=== PATIENT | female | born 1970 | race Caucasian/White ===

== ENCOUNTER 2017-09-22 12:20 | Emergency (ER) | payer OTHER ==
[~2017-09-22] VITALS: Ht 152.4 cm; Wt 48.5 kg
[~2017-09-22 12:20] MED LIST: ADDERALL 20 MG20 MG PO; ADVIL200 M1 PO; ALLEGRA180 MG PO; ALPRAZOLAM1 M1 PO; AMPHETAMINE SAL10 MG PO; AMPHETAMINE SAL20 M1 PO; ATIVAN0.5 MG; BUSPIRONE PO; CELEXA40 MG PO; EXCEDRIN MIGRA1 EAC1 PO; FLONASE 0.05%50 MCG NS; HYDROCODON-ACE1 EAC5 PO; HYDROCODON-ACE1 EAC7 PO; HYDROCODONE-AP1 EA10 PO; IMITREX 50 MG T50 MG PO; KLONOPIN1 MG PO; PERCOCET 5-3251 EACH PO; PRISTIQ100 MG PO; PRISTIQ50 MG; TYLENOL325 MG PO; WELLBUTRIN SR150 MG PO; ZANAFLEX4 MG PO; ZOFRAN ODT4 MG SUBLING
[2017-09-22] MEDS ORDERED: LIDOCAINE VISC100 ML SWISH&SPIT (12:40)
[2017-09-22] MEDS ORDERED: AUGMENTIN 875-1 EACH PO (12:40)
[2017-09-22] MEDS ORDERED: ACETAMINOPHEN-1 EAC1 PO (12:40)
[2017-09-22] MEDS ORDERED: TORADOL 10 MG T10 MG PO (12:40)
[2017-09-22 12:50] VITALS: BP 135/58
== END 2017-09-22 12:51 | disposition home or self-care (01) ==
LOC: M.ERS 12:20
DX: K08.89 Other specified disorders of teeth and supporting structures (principal); F17.210 Nicotine dependence, cigarettes, uncomplicated; Z90.49 Acquired absence of other specified parts of digestive tract; Z91.040 Latex allergy status; Z91.09 Other allergy status, other than to drugs and biological substances

== ENCOUNTER 2018-04-16 23:11 | Inpatient (IN) | payer OTHER ==
[~2018-04-16] VITALS: Ht 152.4 cm; Wt 49.9 kg
[~2018-04-16 23:11] MED LIST changes: +ACETAMINOPHEN-1 EAC1 PO; +AUGMENTIN 875-1 EACH PO; +LIDOCAINE VISC100 ML SWISH&SPIT; +TORADOL 10 MG T10 MG PO
[2018-04-16 23:21] VITALS: BP 142/72
[2018-04-16] MEDS ORDERED: TOPAMAX 100 MG100 MG PO (23:27)
[2018-04-16 23:40] LABS: HEMATOCRIT 33.7 % (37.0-47.0); HEMOGLOBIN 10.1 gm/dL (12.0-15.0); MCH 21.9 pg (26.0-34.0); MCHC 29.8 g/dL (28.0-37.0); MCV 73.7 fL (80.0-100.0); MPV 7.6 fl. (7.2-11.1); NUCLEATED RBCS 0 /100WBC; PLATELET COUNT* 450 thou/uL (150-400); RBC 4.58 mil/uL (4.20-5.00); WBC 13.3 thou/uL (4.0-11.0)
[2018-04-16 23:46] LABS: CALCIUM 8.6 mg/dL (8.5-10.1); CREATININE 0.7 mg/dL (0.6-1.3); POTASSIUM 3.6 mmol/L (3.5-5.1)
[2018-04-16 23:51] LABS: ALBUMIN 3.5 g/dL (3.4-5.0); TOTAL BILIRUBIN 0.3 mg/dL (<0.1-1.0); TOTAL PROTEIN 7.9 g/dL (6.4-8.2)
[2018-04-17 00:04] LABS: ABSOLUTE LYMPHOCYTES 0.7 thou/uL (0.8-5.3); ABSOLUTE MONOCYTES 0.1 thou/uL (0.0-1.2); ABSOLUTE NEUTROPHILS 12.5 thou/uL (1.6-8.1); PLATELET ESTIMATE INCREASED
[2018-04-17 00:05] LABS: ANISOCYTOSIS 1+; CLUMPED PLTS FEW; HYPOCHROMASIA 2+; MACROCYTES Occasional; MICROCYTES 1+; OVALOCYTES Occasional; TOXIC GRANULATION 1+
[2018-04-17 01:26] LABS: URINE BILIRUBIN NEGATIVE (Negative); URINE BLOOD TRACE (Negative); URINE CLARITY CLEAR; URINE COLOR YELLOW; URINE GLUCOSE-RANDOM NEGATIVE (Negative); URINE KETONES NEGATIVE (Negative); URINE LEUKOCYTES-REFLEX NEGATIVE (Negative); URINE PROTEIN NEGATIVE (Negative); URINE SPECIFIC GRAVITY <= 1.005 (1.005-1.030); URINE UROBILINOGEN 0.2 E.U./dl (0.2-1.0)
[2018-04-17 01:27] LABS: URINE NITRITE-REFLEX POSITIVE (Negative)
[2018-04-17 01:34] LABS: AMP/METHAMP POSITIVE (Negative); BARBITURATES Negative (Negative); BENZODIAZEPINES POSITIVE (Negative); COCAINE Negative (Negative); METHADONE Negative (Negative); OPIATES POSITIVE (Negative); PCP Negative (Negative); THC Negative (Negative)
[2018-04-17 01:37] LABS: BACTERIA-REFLEX >30 Many /HPF (None Seen); CASTS None Seen /LPF (None Seen); CRYSTALS None Seen /LPF (None Seen); MUCUS 4-6 Moderate strn/LPF (None Seen); SQUAMOUS >10 Many /LPF (0-3); TRANSITIONAL EPITHEL CELL 0-3 Few /LPF (None Seen); URINE RBC 0-2 Rare /HPF (0-2); URINE WBC-REFLEX 0-5 Rare /HPF (0-5)
--- NOTE | 2018-04-17 01:50 | NUR ---
SURGERY RESIDENT AT BEDSIDE; PT CLOTHING REMOVED, STARTED PRE-OP CHECK LIST SPOUSE AT BEDSIDE; CALL LIGHT WITHIN REACH WILL CONTINUE TO MONITOR
[2018-04-17 02:21] VITALS: BP 136/62
[2018-04-17 05:10] VITALS: BP 131/63
--- NOTE | 2018-04-17 08:12 | NUR ---
Admission to floor at 0500. She had an exploratory laparotomy and has a midline incision with a provena woundvac dressing. She has NG to LIS in L nares and hasn't really had any output. Rivera to DD and not very much output. Vitals are stable. New IV started at 0730 in left forearm, fluids are Lactated Ringers. Patient is more aware now and wweant home to sleep.
[2018-04-17 08:20] VITALS: BP 143/69
[2018-04-17 08:30] LABS: HEMOGLOBIN 9.6 gm/dL (12.0-15.0); MCH 22.1 pg (26.0-34.0); MCHC 29.8 g/dL (28.0-37.0); MCV 74.2 fL (80.0-100.0); MPV 7.9 fl. (7.2-11.1); RBC 4.32 mil/uL (4.20-5.00); RDW-CV 17.9 % (10.5-14.5); WBC 17.3 thou/uL (4.0-11.0)
[2018-04-17 08:37] LABS: ALBUMIN 2.9 g/dL (3.4-5.0); CALCIUM 7.6 mg/dL (8.5-10.1); CREATININE 0.6 mg/dL (0.6-1.3); MAGNESIUM 1.7 mg/dL (1.8-2.4); PHOSPHORUS* 2.2 mg/dL (2.5-4.9); POTASSIUM 3.9 mmol/L (3.5-5.1); TOTAL BILIRUBIN 0.3 mg/dL (<0.1-1.0); TOTAL PROTEIN 6.6 g/dL (6.4-8.2)
[2018-04-17 15:28] VITALS: BP 150/91
--- NOTE | 2018-04-17 16:42 | EKG ---
[place] [address] ELECTROCARDIOGRAM REPORT Name: SHAD FRAIRE Adan Room: [address] ADM IN M.R.#: [id number] Admission: 04/17/18 Attend Phys: Ratna Madsen DO Discharge: Date of : 68 Report #: [id number] THIS REPORT FOR: //name// [facility] ED Test Date: 2018-04-17 Test Time: 01:23:25 Pat Name: SHAD CHAPARRO Department: Room: [address] Gender: F Software Installer: JAMISON : 1970 Requested By: Rebekah Pan Order Number: [id number] ENCARNACION: Homero Jean Measurements Intervals [place] Rate: 84 P: 73 NE: 123 QRS: 44 QRSD: 87 T: 31 QT: 378 QTc: 447 Interpretive Statements Sinus rhythm Low voltage, precordial leads Compared to ECG 03/07/2016 23:40:02 Low QRS voltage now present Electronically Signed On 04-17-2018 16:42:12 CDT by Homero Jean [email or web address] <ELECTRONICALLY SIGNED> By: Homero Jean MD, [facility] 04/17/18 1642 0123 0123 Homero Jean MD, [facility] /EPI
[2018-04-17 20:00] VITALS: BP 115/58
--- NOTE | 2018-04-17 20:20 | NUR ---
PT ALERT AND ORIENTED X4. IVF INFUSING LFA. PT GIVEN IV ZOFRAN AND IV MORPHINE FOR PAIN CONTROL. PROVENA WOUND VAC TO ABDOMINAL INCISION. NO DRAINAGE PRESENT. HOU CATHETER IN PLACE. NG TUBE IN PLACE. 2ND IV LINE STARTED IN RFA FOR INFUSION OF ELECTROLYE REPLACEMENT. VS STABLE. HOURLY ROUNDS MAINTAINED. WILL USE CALL LIGHT FOR ASSISTANCE. CALL LIGHT WITHIN REACH.
[2018-04-18] VITALS: BP 127/47
[2018-04-18 04:00] VITALS: BP 154/63
[2018-04-18 04:54] LABS: ABSOLUTE BASOPHILS 0.1 thou/uL (0.0-0.2); ABSOLUTE EOSINOPHILS 0.1 thou/uL (0.0-0.7); ABSOLUTE LYMPHOCYTES 2.5 thou/uL (0.8-5.3); ABSOLUTE NEUTROPHILS 10.4 thou/uL (1.6-8.1); BASOPHILS 0.9 %; EOSINOPHILS 0.6 %; HEMATOCRIT 27.7 % (37.0-47.0); HEMOGLOBIN 8.1 gm/dL (12.0-15.0); LYMPHOCYTES 17.9 %; MCH 21.8 pg (26.0-34.0); MCHC 29.3 g/dL (28.0-37.0); MCV 74.3 fL (80.0-100.0); MONOCYTES 7.1 %; MPV 8.1 fl. (7.2-11.1); NUCLEATED RBCS 0 /100WBC; PLATELET COUNT* 319 thou/uL (150-400); POLYS 73.5 %; RBC 3.73 mil/uL (4.20-5.00); RDW-CV 18.1 % (10.5-14.5); WBC 14.1 thou/uL (4.0-11.0)
[2018-04-18 05:22] LABS: CALCIUM 7.5 mg/dL (8.5-10.1); CREATININE 0.7 mg/dL (0.6-1.3); PHOSPHORUS* 3.2 mg/dL (2.5-4.9)
--- NOTE | 2018-04-18 06:00 | NUR ---
Alert and oriented x 4. She is drowsy and is still having abdominal pain 8-10 out of 10. She has hypoactive bowel sounds and she states she feels air rumbling around but has not passed gas. She has had morphine x 2 for pain and scheduled toradol and she also has had IV nausea meds prior to morphine because she states it makes her nauseated. NG to LIS hasn't had any output that is measurable. Midline incision has provena wound vac that is dry and intact, without any drainage observed. Vitals are stable. She has slept well.
[2018-04-18 08:15] VITALS: BP 138/50
--- NOTE | 2018-04-18 14:04 | NUR ---
PT.RESTING IN BED. STATED SHE IS FEELING BETTER BUT STILL REALLY SORE. SHE LIVES WITH HER S.O. AND SON. SHE IS NORMALLY INDEPENDENT AND ACTIVE. NO USE OF DME. SHE SHOULD NOT HAVE ANY DISCHARGE NEEDS. GOAL IS TO GO HOME IN SEVERAL DAYS.
--- NOTE | 2018-04-18 15:09 | NUR ---
ALERT AND ORIENTED X4. UP WITH ASSIST X1 WITH GAIT. PAIN BEING MANAGED WITH IV PAIN MEDICATION. DENIES NAUSEA. NG TUBE DC'D THIS AM. HOU DC'D THIS AFTERNOON AFTER PATIENT GOT UP TO CHAIR. PREVENA WOUND VAC IN PLACE ON MIDLINE INCISION ON ABDOMEN. VSS ON ROOM AIR. HOURLY ROUNDS HAVE BEEN MAINTAINED THROUGHOUT SHIFT. CALL LIGHT IS WITHIN REACH. REPORT GIVEN TO AZEEM JONES. NURSING WILL CONTINUE TO MONITOR.
[2018-04-18 17:48] VITALS: BP 100/61
--- NOTE | 2018-04-18 18:57 | NUR ---
RECIEVED REPORT FOR PATIENT FROM ÁNGELA AT 1500. AGREE WITH PREVIOUS NURSE ASSESSMENT. PAIN WELL CONTROLLED WITH PAIN MEDS. VOIDED WITHOUT ISSUE. COMPLETED HOURLY ROUNDING. CALL LIGHT WITHIN REACH. WILL CONTINUE TO MONITOR.
[2018-04-18 21:30] VITALS: BP 90/33
[2018-04-19] VITALS: BP 82/41
[2018-04-19 04:20] VITALS: BP 87/37
[2018-04-19 04:25] LABS: ABSOLUTE BASOPHILS 0.1 thou/uL (0.0-0.2); ABSOLUTE EOSINOPHILS 0.2 thou/uL (0.0-0.7); ABSOLUTE MONOCYTES 0.5 thou/uL (0.0-1.2); ABSOLUTE NEUTROPHILS 4.1 thou/uL (1.6-8.1); BASOPHILS 1.1 %; EOSINOPHILS 3.4 %; HEMOGLOBIN 7.2 gm/dL (12.0-15.0); LYMPHOCYTES 28.4 %; MCH 22.5 pg (26.0-34.0); MCHC 30.1 g/dL (28.0-37.0); MCV 74.8 fL (80.0-100.0); MONOCYTES 7.8 %; NUCLEATED RBCS 0 /100WBC; POLYS 59.3 %; RDW-CV 18.3 % (10.5-14.5)
[2018-04-19 04:36] LABS: PLATELET COUNT* 212 thou/uL (150-400)
[2018-04-19 04:41] LABS: CALCIUM 7.4 mg/dL (8.5-10.1); CREATININE 0.8 mg/dL (0.6-1.3); MAGNESIUM 1.9 mg/dL (1.8-2.4); PHOSPHORUS* 2.6 mg/dL (2.5-4.9); POTASSIUM 3.8 mmol/L (3.5-5.1)
--- NOTE | 2018-04-19 06:50 | NUR ---
PATIENT SLEPT MOST OF THE NIGHT. IV FLUIDS CONTINUE TO INFUSE AT 80 ML/HR. MIDLINE INCISION WITH PROVENA REMAINS INTACT. BP HAS RAN LOW THIS SHIFT FLUID BOLUS WAS GIVEN ORDERED. STILL RUNNING LOW CHARTED BUT IS ASYPTOMATIC STILL. WILL CONTINUE TO MONITOR.
[2018-04-19 08:30] VITALS: BP 87/37
[2018-04-19 11:51] LABS: HEMATOCRIT 24.4 % (37.0-47.0); HEMOGLOBIN 7.2 gm/dL (12.0-15.0)
[2018-04-19 16:01] VITALS: BP 83/31
--- NOTE | 2018-04-19 17:58 | NUR ---
PATIENT REMAINED ALERT AND ORIENTED X'S 4. VITAL SIGNS STABLE BUT BP IS RUNNING SOFT. IV CLEAN, FLUIDS INFUSING. PAIN WELL CONTROLLED WITH PAIN MEDS. VOIDED WITHOUT ISSUE. TOLERATED DIET, NO NAUSEA AND VOMITING. PATIENT DID WELL FOR PT. INCISION ON ABDOMEN CLEAN, DRY, INTACT. COMPLETED HOURLY ROUNDING, CALL LIGHT WITHIN REACH. WILL CONTINUE TO MONITOR.
[2018-04-19 20:45] VITALS: BP 92/39
[2018-04-20 00:30] VITALS: BP 89/30
[2018-04-20 04:20] VITALS: BP 83/32
[2018-04-20 04:51] LABS: ABSOLUTE EOSINOPHILS 0.2 thou/uL (0.0-0.7); ABSOLUTE LYMPHOCYTES 1.4 thou/uL (0.8-5.3); ABSOLUTE MONOCYTES 0.5 thou/uL (0.0-1.2); BASOPHILS 0.8 %; EOSINOPHILS 3.9 %; HEMATOCRIT 23.6 % (37.0-47.0); LYMPHOCYTES 22.2 %; MCH 22.4 pg (26.0-34.0); MCHC 29.7 g/dL (28.0-37.0); MCV 75.2 fL (80.0-100.0); MONOCYTES 7.9 %; MPV 8.4 fl. (7.2-11.1); NUCLEATED RBCS 0 /100WBC; PLATELET COUNT* 216 thou/uL (150-400); POLYS 65.2 %; RBC 3.14 mil/uL (4.20-5.00); RDW-CV 18.6 % (10.5-14.5); WBC 6.1 thou/uL (4.0-11.0)
[2018-04-20 05:00] LABS: CALCIUM 7.3 mg/dL (8.5-10.1); CREATININE 0.8 mg/dL (0.6-1.3); MAGNESIUM 1.9 mg/dL (1.8-2.4); PHOSPHORUS* 2.5 mg/dL (2.5-4.9); POTASSIUM 3.4 mmol/L (3.5-5.1)
--- NOTE | 2018-04-20 07:03 | NUR ---
PATIENT SLEPT MOST OF THE NIGHT. IV FLUIDS CONTINUE TO INFUSE AT 80 ML/HR. PATIENT WAS GIVEN PAIN MEDICINE THREE TIMES THIS SHIFT. BP REMAINS LOW. MIDLINE INCISION REMAINS INTACT WITH PROVENA IN PLACE. WILL CONTINUE TO MONITOR.
[2018-04-20 07:35] LABS: ANISOCYTOSIS 1+; HYPOCHROMASIA 3+; MICROCYTES 1+; OVALOCYTES 1+; PLATELET ESTIMATE ADEQUATE; POIKILOCYTOSIS 1+; POLYCHROMASIA 1+
[2018-04-20 09:49] LABS: HEMATOCRIT 24.8 % (37.0-47.0); HEMOGLOBIN 7.3 gm/dL (12.0-15.0)
[2018-04-20 12:04] VITALS: BP 84/41; BP 84/44; BP 86/37; BP 87/37
[2018-04-20 16:02] VITALS: BP 83/36
[2018-04-20 19:40] VITALS: BP 85/42
--- NOTE | 2018-04-20 20:15 | NUR ---
PATIENT REMAINED ALERT AND ORIENTED X'4. VITAL SIGNS AND SPO2 STABLE. IV CLEAN, FLUIDS INFUSING. 10/325 HYDROCODONE SEEMS TO WORK VERY WELL FOR PAIN. TOLERATED DIET, NO NAUSEA AND VOMITING. PATIENT WALKED HALLS AND DID WELL. SHE IS GETTING OUT OF BED MUCH EASIER AND WITHOUT HELP AT THIS POINT. SHE RECIEVED ONE UNIT OF BLOOD. THE COLOR IN HER FACE CAME BACK AND SHE FELT A LITTLE MORE ENERGY BUT HER BLOOD PRESSURE REMAINED 80'S/30'S. VOIDED WITHOUT ISSUE, STARTED ON BOWEL MEDS BUT HAS NOT HAD A BM YET. COMPLETED HOURLY ROUNDING. CALL LIGHT WITHIN REACH. WILL CONTINUE TO MONITOR.
[2018-04-21 00:32] VITALS: BP 87/36
[2018-04-21 04:00] VITALS: BP 107/55
[2018-04-21 04:26] LABS: HEMATOCRIT 27.6 % (37.0-47.0); HEMOGLOBIN 8.4 gm/dL (12.0-15.0); MCH 23.6 pg (26.0-34.0); MCHC 30.5 g/dL (28.0-37.0); MCV 77.4 fL (80.0-100.0); MPV 8.5 fl. (7.2-11.1); RBC 3.57 mil/uL (4.20-5.00); WBC 5.8 thou/uL (4.0-11.0)
[2018-04-21 04:40] LABS: CALCIUM 8.3 mg/dL (8.5-10.1); CREATININE 0.8 mg/dL (0.6-1.3); POTASSIUM 3.8 mmol/L (3.5-5.1)
--- NOTE | 2018-04-21 05:30 | NUR ---
PATIENT REMAINS ALERT AND ORIENTED X4 THROUGHOUT SHIFT. VITAL SIGNS STABLE ON ROOM AIR. IV PATENT IN THE RIGHT AC INFUSING PER ORDERS. PAIN MANAGED WITH PO MEDICATION PER ORDERS. TRANSFERS WITH ONE ASSIST TO THE RESTOOM. MIDLINE DRESSING CLEAN, DRY AND INTACT WITH WOUND VAC IN PLACE. REPOSITIONING SELF IN BED. HOURLY ROUNDING COMPLETE. CALL LIGHT WITHIN REACH. NURSING WILL CONTINUE TO MONITOR.
[2018-04-21 08:20] VITALS: BP 87/42
[2018-04-21 12:24] VITALS: BP 87/42
--- NOTE | 2018-04-21 13:48 | NUR ---
PATIENT BP'S NOTED TO BE SOFT THIS SHIFT, DR. HELM WAS NOTIFIED AND OK TO DISCHARGE HOME. ASYMPTOMATIC. IVF AND SCHED ABX INFUSED ORDERED, IV'S DC'D THIS AFTERNOON FOR DISCHARGE. PROVENA REMAINS IN PLACE TO MIDLINE, MIDLINE NOTED TO BE DRY AND INTACT. PASSING FLATUS. PATIENT UP AND AMBULATED IN [place] WITH THIS NURSE, NO DIFFICULTY NOTED. PRN VICODIN GIVEN FOR PAIN, PATIENT RATING PAIN 8/10 PRIOR AND THEN AFTER GIVEN 7/10, PATIENT STATED SHE STILL WANTED TO DISCHARGE AND PAIN WAS TOLERABLE. VERBALIZED UNDERSTANDING OF PAPERWORK, NO SCRIPTS NOTED PATIENT HAS PAIN MEDICATION AT HOME. PATIENT TAKEN OUT WITH STAFF VIA WHEELCHAIR WITH ALL BELONGINGS.
--- NOTE | 2018-04-21 17:08 | PATH ---
[address] [address] PATHOLOGY RPT PROCEDURE Name: SHAD FRAIRE Room: [address] IN [facility]#: [id number] Admission: 04/17/18 Date of : 68 Discharge: 04/21/18 Report #: [id number] Path Case #: [id number] Note [facility] Accession Number: [id number] TESTS RESULT FLAG UNITS REF RANGE LAB Clinician Provided Cytology Information No. of containers..01 Other (Miscellaneous) Source: INRTA ABDOMINAL FLUI DIAGNOSIS: INRTA ABDOMINAL FLUI NEGATIVE FOR MALIGNANT CELLS. MESOTHELIAL CELLS AND FEW INFLAMMATORY CELLS IN BLOODY BACKGROUND. THIS INTERPRETATION INCLUDES EVALUATION OF A CELL BLOCK. Signed out by: 02 Ej Victor MD, Pathologist NPI- [id number] Performed by: 01 Fransico Brewer, Heel Wheeler ([facility]) Gross description: 01 60ML, WHITE/RED, CLOUDY /LCS FLAG LEGEND: L-Low Normal,H-High Normal,LL-Alert Low,HH-Alert High <-Panic Low,>-Panic High,A-Abnormal,AA-Critical Abnormal Performed at: [address] [place] [address] Peewee Lebron MD, [address] [place] [address] [address] [facility], [place] [address] Ej Victor MD, Specimen Comment: A courtesy copy of this report has been sent to Specimen Comment: [phone]. Specimen Comment: Report sent to Performed at: [address], [place], [place] [id number] MD Peewee Lebron MD Phone: [phone]
--- NOTE | 2018-04-24 07:43 | OP ---
[address] [address] OPERATIVE REPORT Name: SHAD FRAIRE Room: [address] IN M.R.#: [id number] Admission: 04/17/18 Attend Phys: Ratna Madsen DO Discharge: 04/21/18 Date of : 68 Report #: [id number] THIS REPORT FOR: //name// CC: Ratna Kelley DATE OF SERVICE: 04/17/2018 PREOPERATIVE DIAGNOSIS: Small-bowel obstruction due to internal hernia. POSTOPERATIVE DIAGNOSES: Small-bowel obstruction due to internal hernia, with the addition of adhesions. FINDINGS: The patient was status post gastric bypass with an antecolic limb of the jejunum going to the stomach remnant. There was a mesenteric defect just next to the SMA through which the entire small bowel had volvulized. There were a few dense adhesions from the omentum to the anterior abdominal wall. There was at least a liter of thick milky fluid throughout the abdomen. ANESTHESIA: General endotracheal and local. ESTIMATED BLOOD LOSS: 10 DRAINS: NG tube and Rivera catheter. SPECIMENS: Fluid for culture and cytology. COMPLICATIONS: None. CONDITION: Stable. DISPOSITION: PACU to the floor. HISTORY OF PRESENT ILLNESS: The patient is a 47-year-old female who presented to the ER with a complaint of acute onset left upper quadrant abdominal pain at approximately 6:00 p.m. this evening. This was associated with nausea without vomiting. She has had no fevers or chills. She has otherwise been in her standard state of health. She does have a history of a gastric bypass back in 2003. Workup was done in the ER including a CT scan, which was significant for what appeared to be an internal hernia with compromise of the small bowel. There was possible obstruction of the SMA and the SMV due to the internal hernia. The patient was immediately seen and was consented for an exploratory laparotomy, possible bowel resection, possible ostomy. We also discussed the possibility of needing to leave the abdomen open to return for a second look. Risks of surgery were discussed to include bleeding, infection, pain, scar formation, injury to bowel, hernia at the incision sites, [place] [address] OPERATIVE REPORT Name: SHAD FRAIRE Room: [address] IN .R.#: [id number] Admission: 04/17/18 Attend Phys: Ratna Madsen DO Discharge: 04/21/18 Date of : 68 Report #: [id number] abdomen and need for an ostomy, need for bowel resection and risks of general anesthesia. The patient understood these risks and elected to proceed. DESCRIPTION OF PROCEDURE: The patient was brought to the operating room. She was laid supine on the operating room table. SCDs were placed to bilateral lower extremities. The patient had already received Zosyn in the perioperative period. General endotracheal anesthesia was induced by Anesthesia without difficulty. Rivera catheter was placed utilizing sterile technique. Abdomen was prepped and draped in standard sterile fashion. Timeout was performed to verify patient and procedure. A 10 mL of 0.5% Marcaine were injected in the supraumbilical area. Incision was made with a 10 blade. Cautery was used for hemostasis. Cautery was then used to dissect down through subcutaneous tissue until fascia was identified. Fascia was nicked using cautery and was then elevated between 2 Debra clamps. Fascia was then incised superiorly and inferiorly. Peritoneum was then also gently nicked using a [place] clamp. Finger was introduced into the abdomen and the peritoneum was elevated. It was then incised superiorly and inferiorly. We immediately encountered a large amount of thick milky fluid throughout the entirety of the abdomen. This was suctioned away. We obtained approximately 1 liter of this fluid. Cultures were taken. The fluid was also gathered for cytology to be sent to the Pathology Department. There were some adhesions between the anterior abdominal wall and the omentum from her previous surgeries. These were taken down using a combination of blunt and cautery dissection. Omentum was then flipped superiorly. Small bowel was then eviscerated. Upon our initial entry, the entirety of the small bowel was somewhat dusky. We immediately identified the area of the internal hernia, which was from her previous gastric bypass surgery. This was through the mesentery of the small bowel, right next to the SMA and the SMV. The entirety of the small bowel was rotated. I was then able to reduce the hernia through the defect. Small bowel immediately pinkened up and began to peristalse. Gastric pouch was then identified. Anesthesia then passed an NG tube with me guiding them without difficulty. This was then secured into place. The entirety of the bowel was then run from the GJ to the JJ and then from the JJ to the terminal ileum. No further issues were identified. There were several areas of some bruising in the mesentery, but the bowel was otherwise uncompromised and again had immediately pinkened up once we reduced the hernia. The colon was then either completely visualized or palpated. There were no further issues identified besides some constipation in the colon. Abdomen was then copiously irrigated and suctioned until clear. The small bowel was allowed to fall into its anatomical position. The rent in the mesentery was then closely inspected. It was quite large. The rent was then closed using multiple interrupted stitches of 3-0 silk in a aelial-md-krazn fashion with excellent approximation of the rent. The rent was right next to the SMA, so care was taken to avoid injuring the underlying vascular structures. Upon the completion of this, I was unable to even fit a finger through the rent. Bowel was then returned into the abdomen. The omentum [place] [address] OPERATIVE REPORT Name: SHAD FRAIRE Room: [address] IN M.R.#: [id number] Admission: 04/17/18 Attend Phys: Ratna Madsen DO Discharge: 04/21/18 Date of : 68 Report #: [id number] bowel. Kochers were placed on the fascia of our incision. Our fascia was then closed in a running fashion with two #1 PDS with excellent approximation of the fascia. Subcutaneous tissues were irrigated. Subcutaneous tissues were then closed in a layered fashion using deep and superficial stitches of 3-0 Vicryl in inverted interrupted fashion. Skin wound was closed with running 4-0 Monocryl. A total of 30 mL of 0.5% Marcaine were used to anesthetize the wound. Wound was then cleansed and covered with Mastisol and a small Prevena VAC. The patient was then allowed to awake from anesthesia, was extubated and transported to the recovery room with no further difficulties. Counts were correct x 2 at the conclusion of the case. <ELECTRONICALLY SIGNED> By: Ratna Madsen DO 04/24/18 0743 0434 [id number] Madsen DO /nt
--- NOTE | 2018-04-24 13:22 | CON ---
[address] [address] CONSULTATION Name: SHAD FRAIRE Room: [address] IN M.R.#: [id number] Admission: 04/17/18 Attend Phys: Ratna Madsen DO Discharge: 04/21/18 Date of : 68 Report #: [id number] THIS REPORT FOR: //name// CC: Ratna Kelley DATE OF SERVICE: 04/17/2018 HISTORY OF PRESENT ILLNESS: The patient is a pleasant 47-year-old female with past medical history significant for gastric bypass 14 years back for weight loss, who presented to the hospital 2 days back with worsening episodes of cramping abdominal pain. The patient was at that time diagnosed with internal herniation and small-bowel obstruction with possible vascular compromise. The patient was taken for emergent surgery and the internal herniation was resolved. GI service has been consulted for evaluation of iron deficiency anemia. The patient reports that she has had iron deficiency anemia for a long time. The patient was supposed to have an EGD and colonoscopy performed by our group on 05/02 for the same. The patient denies any hematochezia, melena, hematemesis or weight loss. The patient has had multiple episodes of abdominal pain, which is cramping in nature, but usually resolves within a few minutes to hours since her gastric bypass surgery. The patient reports she had an ulcer diagnosed 5 years back, but never had a colonoscopy before. The patient reports that at this time she is able to pass gas, but has not been able to pass any bowel movements. PAST MEDICAL HISTORY: As mentioned above, the patient had obesity in the past. PAST SURGICAL HISTORY: The patient had cholecystectomy in 1995, gastric bypass in 2013. She had multiple back surgeries and an EGD. FAMILY HISTORY: The patient denies significant family history of colorectal cancer. SOCIAL HISTORY: The patient denies smoking, alcohol use or recreational drug use. REVIEW OF SYSTEMS: Comprehensive 10-point review of systems is negative except for what was mentioned above. PHYSICAL EXAMINATION: VITAL SIGNS: Temperature 36.8, pulse rate 84, respirations 18, blood pressure 83/31, pulse ox 96% on room air. GENERAL: The patient is alert, awake, oriented, in no distress. HEENT: Her pupils are equal, round, reactive to light and accommodation. [place] [address] CONSULTATION Name: SHAD FRAIRE Adan Room: [address]#: [id number] Admission: 04/17/18 Attend Phys: Ratna Madsen, Discharge: 04/21/18 Date of : 68 Report #: [id number] NECK: Supple. There is no supraclavicular lymphadenopathy. LUNGS: Clear to auscultation bilaterally. CARDIOVASCULAR: Rate and rhythm regular. S1, S2 present. ABDOMEN: Wound VAC in the mid abdomen. Mild tenderness around the site of the incision. Bowel sounds are present. No organomegaly, no masses detected. EXTREMITIES: Warm and well perfused. There is no pitting edema. NEUROLOGIC: There is no focal neurological deficit. SKIN: Warm and dry. LABORATORY DATA: Hemoglobin 7.2, hematocrit 24.0, platelet count 212. Sodium 138, potassium 3.8, chloride 106, BUN 10, creatinine 0.8. IMAGING: CT abdomen and pelvis performed on 04/16/2018 left upper quadrant internal hernia with swelling of the fat and compression of both superior mesenteric arteries, large amount of mesenteric edema present with small bowel thickening, has significant vascular compromise. Moderate amount of intraperitoneal ascites including perihepatic pelvic fluid. Previous evidence of gastric bypass surgery. ASSESSMENT AND PLAN: A 47-year-old female with past medical history significant for gastric bypass, presented with progressively worsening abdominal pain and was found to have internal herniation of the small bowel with possible strangulation of the superior mesenteric vessel. Surgery was performed and the hernia has been resolved. GI service has been consulted for evaluation of iron deficiency anemia. 1. Iron deficiency anemia. Patients with gastric bypass can have iron deficiency anemia due to lack of absorption from the altered anatomy. I will check her iron indices and a B12 and folate. I do not plan on performing endoscopic evaluation due to her recent surgery unless the patient develops acute GI bleeding. 2. Constipation. The patient has not been able to pass stool since her admission. I will get an abdominal x-ray to see if she has any impacted stool. Other recommendations will be based on the results of this. <ELECTRONICALLY SIGNED> By: Virgilio Carrillo MD 04/24/18 1322 [id number] Carrillo MD /nt
== END 2018-04-21 13:58 | disposition home or self-care (01) | DRG 335 ==
LOC: M.SUR 23:11 → M.ERS 23:11 → M.SUR 04-17 02:22 → M.ORTHSURG 04-17 04:18 → M.SUR 04-17 04:18 → M.TBA-ER 04-17 04:18 → M.ORTHSURG 04-17 05:00 → M.TBA-ER 04-17 05:02 → M.ORTHSURG 04-17 05:02
PROVIDERS: Emergency Medicine; Internal Medicine Gastroenterology; Surgery; ADMIT Surgery
DX: K40.30 Unilateral inguinal hernia, with obstruction, without gangrene, not specified as recurrent (principal); K65.0 Generalized (acute) peritonitis; K56.50 Intestinal adhesions [bands], unspecified as to partial versus complete obstruction; E44.1 Mild protein-calorie malnutrition; R65.10 Systemic inflammatory response syndrome (SIRS) of non-infectious origin without acute organ dysfunction; I87.1 Compression of vein; R18.8 Other ascites; I77.1 Stricture of artery; K59.00 Constipation, unspecified; D50.9 Iron deficiency anemia, unspecified; I95.9 Hypotension, unspecified; Z91.040 Latex allergy status; Z90.49 Acquired absence of other specified parts of digestive tract; Z91.048 Other nonmedicinal substance allergy status; Z98.84 Bariatric surgery status; Z98.891 History of uterine scar from previous surgery; Z79.899 Other long term (current) drug therapy; Z68.21 Body mass index [BMI] 21.0-21.9, adult

== ENCOUNTER → 2020-03-16 | Outpatient (CLI) | payer OTHER ==
[~2020-03-16] MED LIST changes: +BRINTELLIX20 MG PO; +REXULTI0.5 MG PO; +TOPAMAX 100 MG100 MG PO
== END ==
LOC: M.ULTRA 03-02 13:00
PROVIDERS: ATTEND Family Medicine
DX: E04.2 Nontoxic multinodular goiter (principal)